=== PATIENT | female | born 1990 | race Hispanic/Latino ===

== ENCOUNTER 2016-06-18 00:19 | Emergency (ER) | payer OTHER ==
[~2016-06-18] VITALS: Ht 157.5 cm; Wt 61.2 kg
--- NOTE | 2016-06-18 00:46 | ED GI/GU/ABDOMINAL COMPLAINT ---
History of Present Illness General Chief Complaint: Abdominal Pain/Flank Pain Stated Complaint: "PER PT ABD PAIN SOB" Source: patient, old records, friend Exam Limitations: no limitations Vital Signs & Intake/Output Vital Signs & Intake/Output Vital Signs Date Time Temp Pulse Resp B/P Pulse O2 O2 Flow FiO2 Ox Delivery Rate 06/18 0251 98.9 82 20 125/65 100 Room Air 06/18 0024 97.2 81 20 121/72 98 Room Air Allergies Coded Allergies: No Known Allergies (10/25/15) Reconcile Medications No Known Home Medications Triage Note: PT STATES SHE IS HAVING 10/10 CRAMPING AND TIGHTNESS IN ABDOMEN, BACK, AND SHE ALSO FEELS LIKE SHE CANNOT BREATHE DUE TO THE PAIN. PT STATES SHE TOOK COLD AND FLU MEDICATIONS TWO HOURS AGO. Triage Nurses Notes Reviewed? yes ? N Is pt currently ? No HPI: 4 hour history of diffuse crampy abdominal pain. Pain is 10 out of 10. There are no aggravating or mitigating factors. There is no radiation of the pain. The pain is constant. No fevers or chills. Positive nausea but no vomiting. No constipation. No dysuria or hematuria. Patient is 2 months status post C- section. Past History Travel History Traveled to [place] past 21 day No Medical History Any Pertinent Medical History? 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 No Review of Systems Review of Systems Constitutional: Reports: no symptoms. EENTM: Reports: no symptoms. Respiratory: Reports: no symptoms. Cardiovascular: Reports: no symptoms. GI: Reports: see HPI, abdominal pain, nausea. Genitourinary: Reports: no symptoms. Musculoskeletal: Reports: no symptoms. Skin: Reports: no symptoms. Neurological/Psychological: Reports: no symptoms. Hematologic/Endocrine: Reports: no symptoms. Immunologic/Allergic: Reports: no symptoms. All Other Systems: Reviewed and Negative Physical Exam Physical Exam General Appearance: well developed/nourished, alert, awake, anxious, severe distress Head: atraumatic, normal appearance Eyes: Bilateral: PERRL, EOMI, other (ANICTERIC). Ears, Nose, Throat, Mouth: hearing grossly normal, RY MUCOSA Neck: normal inspection, supple, full range of motion Respiratory: normal breath sounds, chest non-tender, no respiratory distress, lungs clear Cardiovascular: regular rate/rhythm, normal peripheral pulses Gastrointestinal: normal bowel sounds, soft, no organomegaly, tenderness (RUQ AND PERIUMBILICAL) Back: normal inspection, normal range of motion, NO cva TENDERNESS Extremities: normal range of motion Neurologic/Psych: no motor/sensory deficits, awake, alert, oriented x 3, normal mood/affect Skin: intact, normal color, warm/dry Core Measures ACS in differential dx? No Severe Sepsis Present: No Septic Shock Present: No Progress Differential Diagnosis: appendicitis, biliary colic, cholecystitis, gastritis, ischemic bowel, inflamm bowel dis, peptic ulcer, PUD/GERD Plan of Care: Orders Procedure Date/time Status URINALYSIS 06/18 44 Complete LIPASE 06/18 44 Complete HUMAN BETA HCG SCREEN 06/18 44 Complete COMPREHENSIVE METABOLIC PANEL 06/18 44 Complete CBC WITHOUT DIFFERENTIAL 06/18 44 Complete AMYLASE 06/18 44 Complete Laboratory Tests 06/18/16 0128: Urinalysis LIGHT H, Urine Color YEL, Urine Clarity CLEAR, Urine pH 6.0, Ur Specific [place]ham >= 1.030, Urine Protein TRACE H, Urine Ketones TRACE H, Urine Nitrite NEG, Urine Bilirubin NEG, Urine Urobilinogen 1.0, Ur Leukocyte Esterase NEG, Ur Microscopic SEDIMENT EXAMINED, Urine RBC 1-3, Urine WBC 1-3 H, Ur Epithelial Cells MOD H, Urine Mucus MANY H, Urine Hemoglobin NEG, Urine Glucose NEG 06/18/16 0123: Anion Gap 9, Estimated GFR > 60, BUN/Creatinine Ratio 18.3, Glucose 97, Calcium 8.4, Total Bilirubin 0.6, AST 42 H, ALT 40, Alkaline Phosphatase 87, Total Protein 6.4, Albumin 3.6, Globulin 2.8, Albumin/Globulin Ratio 1.3, Amylase < 30 L, Lipase 244, Total Beta HCG NEGATIVE, CBC w Diff NO MAN DIFF REQ, RBC 3.96 L , MCV 82.7, MCH 26.9 L, RDW 17.2 H, MPV 9.5, Gran % 73.6, Lymphocytes % 17.9 L, Monocytes % 6.0, Eosinophils % 2.2, Basophils % 0.3, Absolute Granulocytes 7.9 H, Absolute Lymphocytes 1.9, Absolute Monocytes 0.6, Absolute Eosinophils 0.2, Absolute Basophils 0, PUBS MCHC 32.5 L Diagnostic Imaging: Viewed by Me: CT Scan. Discussed w/RAD: CT Scan. Radiology Impression: PATIENT: FRANCESCO MELARA PRESENT AGE: 26 PATIENT ACCOUNT NO: [id number] : 91 LOCATION: [facility] ORDERING PHYSICIAN: JOSE MANUEL BURTON MD SERVICE DATE: 06/18/16 EXAM TYPE: CAT - CT ABD & PELVIS W IV CONTRAST EXAMINATION: CT ABDOMEN AND PELVIS WITH CONTRAST CLINICAL INFORMATION: Abdominal pain COMPARISON: None. TECHNIQUE: Multidetector volumetric imaging was performed of the abdomen and pelvis before and after the IV administration of 93 mL of Optiray 320 intravenous contrast. Sagittal and coronal reformatted images were obtained on the technologist's workstation. DLP: 276.36 mGy-cm. FINDINGS: LUNG BASES: The visualized lung bases are unremarkable. LIVER, GALLBLADDER, AND BILIARY TREE: The liver is normal in size, shape, and attenuation. Periportal edema is noted. No focal hepatic lesion or biliary ductal dilatation is present. The gallbladder is unremarkable with no evidence of radiopaque gallstones, gallbladder wall thickening, or obvious pericholecystic inflammatory changes. PANCREAS: Unremarkable. SPLEEN: Unremarkable. ADRENAL GLANDS: Unremarkable. KIDNEYS AND URETERS: The kidneys are normal in size, shape, and attenuation. No hydronephrosis, hydroureter, or calculi seen. No perinephric stranding. BLADDER: Minimally distended and not well evaluated. GASTROINTESTINAL TRACT: The small and large bowel are unremarkable. The appendix is unremarkable. ABDOMINAL WALL: No significant hernia is appreciated. LYMPH NODES: Normal. VASCULAR: The inferior vena cava is prominent in size. The aorta is unremarkable. PELVIC VISCERA: Unremarkable. OSSEOUS STRUCTURES: Unremarkable. IMPRESSION: 1. No acute findings identified. Normal appendix. 2. Periportal edema and prominent inferior vena cava, likely reflective of patient's volume status. 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 < Electronically signed in Other Vendor System> SIGNED BY: THUY WILSON MD 06/18/16 7836 Initial ED EKG: none Comments: Patient is feeling better after Phenergan and Levsin. Departure Departure Disposition: HOME OR SELF CARE Condition: Stable Clinical Impression Primary Impression: Lower abdominal pain, unspecified Secondary Impressions: Gastroenteritis Referrals: PATIENT HAS NO PRIMARY CARE DR (PCP/Family) Additional Instructions: Return if symptoms worsen or as needed. Departure Forms: Customer Survey General Discharge Information Prescriptions: Current Visit Scripts Hyoscyamine (Levsin) 1 TAB PO Q4 PRN ABDOMINAL PAIN #20 TAB Ondansetron (Zofran Odt) 1 TAB SL TID PRN NAUSEA #10 TAB
[2016-06-18 01:35] LABS: ABSOLUTE BASOPHIL COUNT 0 /CUMM (0.0-0.2); ABSOLUTE EOSINOPHIL COUNT 0.2 /CUMM (0.0-0.7); ABSOLUTE GRANULOCYTE CT 7.9 /CUMM (1.4-6.5); ABSOLUTE LYMPH COUNT 1.9 /CUMM (1.2-3.4); ABSOLUTE MONOCYTE COUNT 0.6 /CUMM (0.10-0.60); BASOPHIL % 0.3 % (0.0-2.0); EOSINOPHIL % 2.2 % (0-5); GRANULOCYTE % 73.6 % (42.2-75.2); HEMATOCRIT 32.7 % (37-47); MEAN CORPUSCULAR HGB 26.9 PG (27.0-31.0); MEAN CORPUSCULAR HGB CONC 32.5 G/DL (33.0-37.0); MEAN CORPUSCULAR VOLUME 82.7 FL (81.0-99.0); MEAN PLATELET VOLUME 9.5 FL (7.4-10.4); PLATELET COUNT 207 /CUMM (130-400); RBC DISTRIBUTION WIDTH 17.2 % (11.5-14.5); RED BLOOD CELL CT 3.96 /CUMM (4.20-5.40); WHITE BLOOD CELL COUNT 10.7 /CUMM (4.8-10.8)
[2016-06-18 02:51] VITALS: BP 125/65
--- NOTE | 2016-06-18 03:29 | CT SCAN REPORT ---
EXAMINATION: CT ABDOMEN AND PELVIS WITH CONTRAST CLINICAL INFORMATION: Abdominal pain COMPARISON: None. TECHNIQUE: Multidetector volumetric imaging was performed of the abdomen and pelvis before and after the IV administration of 93 mL of Optiray 320 intravenous contrast. Sagittal and coronal reformatted images were obtained on the technologist's workstation. DLP: 276.36 mGy-cm. FINDINGS: LUNG BASES: The visualized lung bases are unremarkable. LIVER, GALLBLADDER, AND BILIARY TREE: The liver is normal in size, shape, and attenuation. Periportal edema is noted. No focal hepatic lesion or biliary ductal dilatation is present. The gallbladder is unremarkable with no evidence of radiopaque gallstones, gallbladder wall thickening, or obvious pericholecystic inflammatory changes. PANCREAS: Unremarkable. SPLEEN: Unremarkable. ADRENAL GLANDS: Unremarkable. KIDNEYS AND URETERS: The kidneys are normal in size, shape, and attenuation. No hydronephrosis, hydroureter, or calculi seen. No perinephric stranding. BLADDER: Minimally distended and not well evaluated. GASTROINTESTINAL TRACT: The small and large bowel are unremarkable. The appendix is unremarkable. ABDOMINAL WALL: No significant hernia is appreciated. LYMPH NODES: Normal. VASCULAR: The inferior vena cava is prominent in size. The aorta is unremarkable. PELVIC VISCERA: Unremarkable. OSSEOUS STRUCTURES: Unremarkable. IMPRESSION: 1. No acute findings identified. Normal appendix. 2. Periportal edema and prominent inferior vena cava, likely reflective of patient's volume status.
[2016-06-18] MEDS ORDERED: LEVSIN0.125 M1 PO (03:46)
[2016-06-18] MEDS ORDERED: ZOFRAN ODT4 M1 SL (03:46)
== END 2016-06-18 03:57 ==
LOC: ERH 00:19
PROVIDERS: Emergency Medicine
DX: K52.9 Noninfective gastroenteritis and colitis, unspecified (principal); R06.02 Shortness of breath
CPT/HCPCS: 74177; 81001; 96361; 96365; 96375; 96376; J0131; J1885; J2405; J2550

== ENCOUNTER 2016-11-17 16:30 | Emergency (ER) | payer OTHER ==
[~2016-11-17] VITALS: Ht 157.5 cm; Wt 63.5 kg
[~2016-11-17 16:30] MED LIST: LEVSIN0.125 M1 PO; ZOFRAN ODT4 M1 SL
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
[2016-11-17] MEDS ORDERED: FERRALET 90 TA1 EACH PO (17:30)
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
[2016-11-17] MEDS ORDERED: CYCLOBENZAPRINE5 M2 PO (17:56)
[2016-11-17 18:03] VITALS: BP 110/74
== END 2016-11-17 18:04 ==
LOC: ERH 16:30
DX: S60.221A Contusion of right hand, initial encounter (principal); Y04.0XXA Assault by unarmed brawl or fight, initial encounter; Y93.89 Activity, other specified; Y92.29 Other specified public building as the place of occurrence of the external cause
CPT/HCPCS: 73130-RT